=== PATIENT | male | born 1995 | race African-American/Black ===

== ENCOUNTER 2022-02-22 11:48 | Emergency (ER) | payer OTHER, SELFPAY ==
[2022-02-22 12:38] VITALS: BP 108/61; PULSE 69; RESP 16; TEMP 37.3; O2SAT 100
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
== END 2022-02-22 13:50 | disposition short-term general hospital (02) ==
PROVIDERS: Emergency Provider Nurse Practitioner
DX: S09.90XA Unspecified injury of head, initial encounter (principal); V86.05XA Driver of 3- or 4- wheeled all-terrain vehicle (ATV) injured in traffic accident, initial encounter; J45.909 Unspecified asthma, uncomplicated
CPT/HCPCS: 99202; G0463

== ENCOUNTER 2022-02-22 15:47 | Emergency (ER) | payer OTHER, SELFPAY ==
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
[2022-02-22 15:59] VITALS: BP 118/50; PULSE 79; RESP 18; TEMP 36.6; O2SAT 100
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
[2022-02-22] MEDS: HYDROcodone/acetaminophen (*CRX) 5-325 MG TABLET 2 TAB PO (17:21)
[2022-02-22] MEDS: methocarbamoL 750 MG TABLET PO (18:47)
== END 2022-02-22 19:39 | disposition home or self-care (01) ==
PROVIDERS: Emergency Provider Emergency Medicine
DX: S00.81XA Abrasion of other part of head, initial encounter (principal); S80.811A Abrasion, right lower leg, initial encounter; S90.811A Abrasion, right foot, initial encounter; S89.92XA Unspecified injury of left lower leg, initial encounter; J45.909 Unspecified asthma, uncomplicated; F17.210 Nicotine dependence, cigarettes, uncomplicated; V86.65XA Passenger of 3- or 4- wheeled all-terrain vehicle (ATV) injured in nontraffic accident, initial encounter
CPT/HCPCS: 70450; 73562; 73630; 99284; A9270